=== PATIENT | female | born 1960 | race Caucasian/White ===

== ENCOUNTER 2016-07-20 14:14 | Day surgery (SDC) | payer MEDICARE, MEDICAID ==
[~2016-07-20 14:14] MED LIST: AMLO10 PO; LORT5TAB PO; METO100T PO
[2016-07-20 15:00] VITALS: BP 126/75; PULSE 73; RESP 20; TEMP 97.6; O2SAT 93
[2016-07-20] MEDS ORDERED: AMLO10TA2 PO (15:04)
[2016-07-20] MEDS ORDERED: SENN1TAB2 PO (15:04)
[2016-07-20] MEDS ORDERED: TIMO5SOL LEFT EYE (15:04)
[2016-07-20] MEDS ORDERED: AMBI10TA PO (15:04)
[2016-07-20] MEDS ORDERED: LEXA10TA PO (15:04)
[2016-07-20] MEDS ORDERED: VENTAER INH (15:04)
[2016-07-20] MEDS ORDERED: NU-IRON PO (15:04)
[2016-07-20] MEDS ORDERED: GABA600T PO (15:04)
[2016-07-20] MEDS ORDERED: MULTTAB67 PO (15:04)
[2016-07-20] MEDS ORDERED: LISI10TA3 PO (15:04)
[2016-07-20] MEDS ORDERED: LORA-361 PO (15:04)
[2016-07-20] MEDS ORDERED: DEXT1SUS PO (15:04)
[2016-07-20] MEDS ORDERED: PERC10TA27 PO (15:04)
[2016-07-20] MEDS ORDERED: IPRASOL INH (15:04)
[2016-07-20] MEDS ORDERED: FLUT1SPR9 EACH NARE (15:04)
[2016-07-20] MEDS ORDERED: CHOL1CAP34 PO (15:04)
[2016-07-20] MEDS ORDERED: LEVO.075 PO (15:04)
[2016-07-20] MEDS ORDERED: XANA1TAB2 PO (15:04)
[2016-07-20] MEDS ORDERED: CALC500C16 CHEW (15:04)
[2016-07-20] MEDS ORDERED: MIRA33504 PO (15:04)
[2016-07-20] MEDS ORDERED: FURO1TAB60 PO (15:04)
[2016-07-20] MEDS ORDERED: OMEP20TA PO (15:04)
[2016-07-20 15:51] VITALS: BP 120/65; PULSE 69; RESP 20; TEMP 97.7; O2SAT 95
--- NOTE | 2016-07-21 09:33 | RADRPT ---
EXAM DATE/TIME: 07/20/2016 15:37 [place] COMPARISON: No previous studies available for comparison. INDICATIONS : Anemia MEDICAL HISTORY : 1. Obese 2.anemia 3. HTN 4. DM 5. Smoker SURGICAL HISTORY : 1.Hysterectomy 2.plastic surgery on nose 3.leep 4. Ulcer surgery ENCOUNTER: Initial ACUITY: 1 week PAIN SCORE: 0/10 FLUORO TIME: 0.4 minutes ACCESS: Right basilic vein DEVICE(S): 1.) 4 [place] single lumen 48 cm Xcela Power PICC PROCEDURE : 1. Ultrasound guidance for venous catheterization. 2. Fluoroscopic guidance. 3. Ultrasound & fluoroscopic guided central venous Power PICC line placement. The risks, benefits and alternatives to the procedure were explained and verbal and written consent w as obtained. The site was prepped in sterile fashion. Full sterile technique was used, including ca p, mask, sterile gloves and gown and a large sterile sheet. Hand hygiene and 2% chlorhexidine prep w as utilized per protocol for cutaneous antisepsis with appropriate dry time for site. The skin and s ubcutaneous tissues were infiltrated with local anesthetic solution. Under direct ultrasound guidance, a suitable vein was accessed and a measuring guidewire was introduc ed and positioned in the central venous system. The ultrasound images depicting access guidance were saved and stored to PACS for permanent record. A Power Injectable PICC line was cut to prescribed length and introduced, positioned with tip at the cavoatrial junction level. The line was flushed and secured per protocol. CONCLUSION: 1. Uncomplicated central venous Power PICC line placement. 2. The PICC line can be used immediately. Og Torres MD on July 21, 2016 at 9:31 Board Certified Radiologist. This report was verified electronically.
== END 2016-07-20 15:59 | disposition home or self-care (01) ==
LOC: HROP 14:14 → HRIP 14:15 → HROP 15:59
PROVIDERS: ATTEND Internal Medicine Hematology & Oncology
DX: Z45.2 Encounter for adjustment and management of vascular access device (principal); D64.9 Anemia, unspecified; E11.9 Type 2 diabetes mellitus without complications; I10 Essential (primary) hypertension
CPT/HCPCS: 36569; 76937; 77001; C1751; J1642